=== PATIENT | male | born 1935 | race Hispanic/Latino ===

== ENCOUNTER 2017-08-21 02:30 | Emergency (ER) | payer MEDICARE, OTHER ==
[2017-08-21 02:46] VITALS: TEMP 97.6
[2017-08-21 02:48] VITALS: BMI 28.0
--- NOTE | 2017-08-21 03:06 | ED PDOC ---
Arrival/HPI - General Chief Complaint: Shortness Of Breath Time Seen by Provider: 08/21/17 02:35 Historian: Patient - History of Present Illness Narrative History of Present Illness (Text): 08/21/17 03:07 An 82 year old male, whose past medical history includes CHF, prior hx V-tach s/ p defibrillator, presents to the emergency department complaining of acute, chronic shortness of breath. Reports for the past 5 or 6 hrs, breathing has become slightly more labored, especially noticed when laying in bed. Notes shortness of breath for the past couple of weeks, worsening tonight. Patient denies any chest pain, recent fevers, cough, chills, weight gain, worsening swelling of legs. Denies any deviation from his heart medication. Patient's reports patient has low blood pressure at baseline, blood pressure was 100/ 60 earlier today. Symptom Onset: Sudden Symptom Course: Unchanged Activities at Onset: Rest Context: Home Past Medical History - Provider Review Nursing Documentation Reviewed: Yes - Infectious Disease Hx of Infectious Diseases: None - Tetanus Immunization Tetanus Immunization: Unknown - Cardiac Hx Angina: Yes Hx Congestive Heart Failure: Yes Hx Hypertension: Yes Hx Internal Defibrillator: Yes (st matteo 10 yrs) Hx Pacemaker: Yes (st matteo) Other/Comment: pacemaker/defibrillator implanted 08/2009 and replaced 08/2015, ablation - Pulmonary Hx Respiratory Disorders: No - Neurological Hx Neurological Disorder: No - HEENT Hx HEENT Disorder: Yes (uses reading glasses) Other/Comment: left eye tear duct closed left eye tears started 6 months ago - Renal Hx Renal Disorder: No - Endocrine/Metabolic Hx Endocrine Disorders: Yes Hx Hypothyroidism: Yes - Hematological/Oncological Hx Blood Disorders: No - Integumentary Hx Dermatological Disorder: No - Musculoskeletal/Rheumatological Hx Falls: No - Gastrointestinal Hx Gastrointestinal Disorders: No - Genitourinary/Gynecological Hx Genitourinary Disorders: Yes Hx Prostate Problems: Yes (enlarged) - Psychiatric Hx Psychophysiologic Disorder: No Hx Emotional Abuse: No Hx Physical Abuse: No Hx Substance Use: No - Surgical History Hx Cardiac Catheterization: Yes Hx Coronary Stent: Yes (x4) Other/Comment: Herniorraphy approx. 5 years ago left inguinal , ablation 02/26/15 - Anesthesia Hx Anesthesia Reactions: No Hx Malignant Hyperthermia: No - Suicidal Assessment Feels Threatened In Home Enviroment: No Family/Social History - Physician Review Nursing Documentation Reviewed: Yes Family/Social History: No Known Family HX Smoking Status: Former Smoker Hx Alcohol Use: Yes Frequency of alcohol use: Socially Hx Substance Use: No Hx Substance Use Treatment: No Allergies/Home Meds Allergies/Adverse Reactions: Allergies No Known Allergies Allergy (Verified 08/21/17 02:55) Home Medications: Home Meds Medication Instructions Recorded Confirmed Allopurinol 300 mg PO DAILY 02/07/15 08/21/17 Atorvastatin Calcium [Lipitor] 20 mg PO DAILY 02/07/15 08/21/17 Aspirin [Aspirin Chewable] 81 mg PO DAILY 02/25/15 08/21/17 Clopidogrel [Plavix] 75 mg PO DAILY 02/25/15 08/21/17 Isosorbide Mononitrate ER [Imdur 30 mg PO DAILY 05/12/15 08/21/17 ER] Potassium Chloride [K-Dur 20] 20 meq PO DAILY 12/08/15 08/21/17 Dutasteride [Avodart] 0.5 mg PO DAILY 02/02/16 08/21/17 Furosemide [Lasix] 20 mg PO BID 02/02/16 08/21/17 Lisinopril [Zestril] 2.5 mg PO DAILY 08/21/17 08/21/17 Nitroglycerin [Nitrotab] 0.4 mg SL PRN PRN 08/21/17 08/21/17 Vitamind3 1,000 iu PO DAILY 08/21/17 08/21/17 Review of Systems - Physician Review All systems were reviewed & negative as marked: Yes - Review of Systems Constitutional: absent: Fevers, Other (chills) Respiratory: SOB. absent: Cough Cardiovascular: absent: Chest Pain Physical Exam Vital Signs Reviewed: Yes Vital Signs Temp Pulse Resp BP Pulse Ox 08/21/17 05:11 74 16 127/80 95 08/21/17 04:58 127/63 08/21/17 02:49 18 98 08/21/17 02:44 97.6 F 70 18 117/80 98 Temperature: Afebrile Blood Pressure: Normal Pulse: Regular Respiratory Rate: Normal Appearance: Positive for: Well-Appearing, Non-Toxic, Comfortable Pain Distress: None Mental Status: Positive for: Alert and Oriented X 3 - Systems Exam Head: Present: Atraumatic, Normocephalic Pupils: Present: PERRL Extroacular Muscles: Present: EOMI Conjunctiva: Present: Normal Mouth: Present: Moist Mucous Membranes Neck: Present: Normal Range of Motion, JVD (at 45 degrees of elevation) Respiratory/Chest: Present: Other (bibasilar crackles). No: Accessory Muscle Use Cardiovascular: Present: Regular Rate and Rhythm (not accelerating), Normal S1, S2, Other (defibrillator and pacemaker). No: Murmurs Abdomen: Present: Normal Bowel Sounds. No: Tenderness, Distention, Peritoneal Signs Back: Present: Normal Inspection Upper Extremity: Present: Normal Inspection, Other (pulses 2+ peripherally). No : Cyanosis, Edema Lower Extremity: Present: Edema (trace b/l pitting edema) Neurological: Present: GCS=15, CN II-XII Intact, Speech Normal Skin: Present: Warm, Dry, Normal Color. No: Rashes Psychiatric: Present: Alert, Oriented x 3, Normal Insight, Normal Concentration Medical Decision Making ED Course and Treatment: 08/21/17 03:03 Impression: An 82 year old male with shortness of breath. Plan: -- EKG -- chest xray -- labs -- Reassess and disposition Prior Visits: Notes and results from previous visits were reviewed. Patient was last seen in the emergency department on 02/02/16 for evaluation of shortness of breath. Progress Notes: EKG: Ordered, reviewed, and independently interpreted the EKG. Rate : 76 BPM Rhythm : pace rhythm Interpretation : left bundle 100% captured, occasional VPCs unifocal, no acute ST/T wave changes Comparison : No previous EKG for comparison. 08/21/17 04:03 Chest xray: Cardiomegaly. Pacemaker noted. No active pulmonary disease, interpreted by me. 08/21/17 04:47 Labs reviewed, reveals elevated BNP 77, 90, consistent with CHF. Patient is mildly symptomatic. Will give patient IV dose of 60 mg Lasix and discharge for follow up with PMD. - Lab Interpretations Lab Results: 08/21/17 03:15 08/21/17 03:15 Lab Results 08/21/17 03:15: Sodium 139, Potassium 4.1, Chloride 106, Carbon Dioxide 25, Anion Gap 12, BUN 38 H, Creatinine 1.5, Est GFR ( Amer) 54, Est GFR (Non- Af Amer) 45, Random Glucose 111 H, Calcium 9.5, Total Bilirubin 1.1, AST 42, ALT 40, Alkaline Phosphatase 166 H, Troponin I < 0.01, NT-Pro-B Natriuret Pep 7790 H, Total Protein 7.0, Albumin 4.1, Globulin 2.8, Albumin/Globulin Ratio 1.5 08/21/17 03:15: WBC 7.3, RBC 4.44, Hgb 13.1 L, Hct 40.7 L, MCV 91.7, MCH 29.5, MCHC 32.2, RDW 15.6 H, Plt Count 203, MPV 9.8, Gran % 73.1 H, Lymph % (Auto) 15.0 L, Cottle % (Auto) 9.4 H, Eos % (Auto) 2.2, Baso % (Auto) 0.3, Gran # 5.37, Lymph # 1.1 L, Cottle # 0.7 H, Eos # 0.2, Baso # 0.02 I have reviewed the lab results: Yes - RAD Interpretation Radiology Orders: 08/21/17 02:49 CHEST PORTABLE [RAD] Stat - EKG Interpretation Interpreted by ED Physician: Yes Type: 12 lead EKG - Medication Orders Current Medication Orders: Discontinued Medications Furosemide (Lasix) 60 mg IVP STAT STA Stop: 08/21/17 04:38 Last Admin: 08/21/17 04:58 Dose: 60 mg MAR Blood Pressure Document 08/21/17 04:58 AD (Rec: 08/21/17 04:58 AD [id number]) Blood Pressure Blood Pressure (100/60-150/90) 127/63 IVP Administration Document 08/21/17 04:58 AD (Rec: 08/21/17 04:58 AD [id number]) Charges for Administration # of IVP Administrations 1 - Scribe Statement The provider has reviewed the documentation as recorded by the Prince Burgess Provider Scribe Attestation: All medical record entries made by the Scribe were at my direction and personally dictated by me. I have reviewed the chart and agree that the record accurately reflects my personal performance of the history, physical exam, medical decision making, and the department course for this patient. I have also personally directed, reviewed, and agree with the discharge instructions and disposition. Disposition/Present on Arrival - Present on Arrival Any Indicators Present on Arrival: No History of DVT/PE: No History of Uncontrolled Diabetes: No Urinary Catheter: No History of Decub. Ulcer: No History Surgical Site Infection Following: None - Disposition Have Diagnosis and Disposition been Completed?: Yes Diagnosis: CHF (congestive heart failure) Disposition: HOME/ ROUTINE Disposition Time: 04:50 Patient Plan: Discharge Condition: FAIR Discharge Instructions (ExitCare): Heart Failure (ED) Referrals: Kelton Haynes MD [Primary Care Provider] - Follow up with primary Forms: [employer] (Algerian)
[2017-08-21 03:31] LABS: BASO # 0.02 K/mm3 (0.0-2.0); BASO % 0.3 % (0.0-3.0); EOS # 0.2 (0.0-0.7); EOS % 2.2 % (1.5-5.0); GRAN # 5.37 (1.4-6.5); GRAN % 73.1 % (50.0-68.0); HEMATOCRIT 40.7 % (42.0-52.0); LYMPH # 1.1 (1.2-3.4); MEAN CELL VOLUME 91.7 fl (80.0-105.0); MEAN CORPUSCULAR HEMOGLOBIN 29.5 pg (25.0-35.0); MEAN CORPUSCULAR HGB CONC 32.2 g/dl (31.0-37.0); MEAN PLATELET VOLUME 9.8 fl (7.0-11.0); MONO # 0.7 (0.1-0.6); MONO % 9.4 % (1.0-6.0); RED CELL DISTRIBUTION WIDTH 15.6 % (11.5-14.5); WHITE BLOOD COUNT 7.3 10^3/ul (4.5-11.0)
[2017-08-21 03:42] LABS: ALB/GLOB RATIO 1.5 (1.1-1.8); ALKALINE PHOSPHATASE 166 U/L (38-126); ALT/SGPT 40 U/L (7-56); AST/SGOT 42 U/L (17-59); BILIRUBIN,TOTAL 1.1 mg/dL (0.2-1.3); BLOOD UREA NITROGEN 38 mg/dL (7-21); CALCIUM 9.5 mg/dL (8.4-10.5); CARBON DIOXIDE 25 mmol/L (21-33); CHLORIDE 106 mmol/L (98-107); GFR AFRICAN-AMERICAN 54; GLUCOSE,RANDOM 111 mg/dL (70-110); POTASSIUM 4.1 mmol/L (3.6-5.0); SODIUM 139 mmol/L (132-148)
[2017-08-21 04:12] LABS: TROPONIN I < 0.01 ng/mL
[2017-08-21 05:12] VITALS: BP 127/80; PULSE 74; RESP 16; O2SAT 95
--- NOTE | 2017-08-21 08:59 | RAD ---
HISTORY: SOB COMPARISON: 02/02/2016 FINDINGS: LUNGS: No active pulmonary disease. PLEURA: No significant pleural effusion identified, no pneumothorax apparent. CARDIOVASCULAR: Mild cardiomegaly. AICD. No congestive change. OSSEOUS STRUCTURES: No significant abnormalities. VISUALIZED UPPER ABDOMEN: Normal. OTHER FINDINGS: None. IMPRESSION: No active disease.
--- NOTE | 2017-08-21 22:21 | CARD ---
APPROVED REPORT EKG Measurement Heart [id number] <Conclusion> Demand pacemaker, interpretation is based on intrinsic rhythm Atrial fibrillation Left axis deviation Right bundle branch block T wave abnormality, consider lateral ischemia or digitalis effect Abnormal ECG
== END 2017-08-21 05:20 | disposition home or self-care (01) ==
LOC: ED 02:30
DX: I50.9 Heart failure, unspecified (principal); I10 Essential (primary) hypertension; E03.9 Hypothyroidism, unspecified; Z95.0 Presence of cardiac pacemaker; Z87.891 Personal history of nicotine dependence
CPT/HCPCS: 71010; 80053; 83880; 84484; 85025; 93005; 96374; 99283; J1940

== ENCOUNTER 2017-11-07 06:03 | Inpatient (IN) | payer MEDICARE, OTHER ==
[2017-11-07 06:04] VITALS: BMI 28.0
--- NOTE | 2017-11-07 06:30 | ED PDOC ---
Arrival/HPI - General Chief Complaint: Shortness Of Breath Time Seen by Provider: 11/07/17 06:14 - History of Present Illness Narrative History of Present Illness (Text): 11/07/17 06:28 patient presents complaini for several nights can't sleep A flat complaining of tightness in his chest no fever no chills no dizziness Past Medical History - Provider Review Nursing Documentation Reviewed: Yes - Infectious Disease Hx of Infectious Diseases: None - Tetanus Immunization Tetanus Immunization: Unknown - Cardiac Hx Angina: Yes Hx Congestive Heart Failure: Yes Hx Hypertension: Yes Hx Internal Defibrillator: Yes (st matteo 10 yrs) Hx Pacemaker: Yes (st matteo) Other/Comment: pacemaker/defibrillator implanted 08/2009 and replaced 08/2015, ablation - Pulmonary Hx Respiratory Disorders: No - Neurological Hx Neurological Disorder: No - HEENT Hx HEENT Disorder: Yes (uses reading glasses) Other/Comment: left eye tear duct closed left eye tears started 6 months ago - Renal Hx Renal Disorder: No - Endocrine/Metabolic Hx Endocrine Disorders: Yes Hx Hypothyroidism: Yes - Hematological/Oncological Hx Blood Disorders: No - Integumentary Hx Dermatological Disorder: No Hx Basal Cell Carcinoma: Yes (chest) - Musculoskeletal/Rheumatological Hx Musculoskeletal Disorders: No Hx Falls: No - Gastrointestinal Hx Gastrointestinal Disorders: No - Genitourinary/Gynecological Hx Genitourinary Disorders: Yes Hx Prostate Problems: Yes (enlarged) - Psychiatric Hx Psychophysiologic Disorder: No Hx Emotional Abuse: No Hx Physical Abuse: No Hx Substance Use: No - Surgical History Hx Cardiac Catheterization: Yes Hx Coronary Stent: Yes (x4) Other/Comment: Herniorraphy approx. 5 years ago left inguinal , ablation skin ca chest - Anesthesia Hx Anesthesia Reactions: No Hx Malignant Hyperthermia: No - Suicidal Assessment Feels Threatened In Home Enviroment: No Family/Social History - Physician Review Nursing Documentation Reviewed: Yes Family/Social History: No Known Family HX Smoking Status: Former Smoker Hx Alcohol Use: Yes Frequency of alcohol use: Socially Hx Substance Use: No Hx Substance Use Treatment: No Allergies/Home Meds Allergies/Adverse Reactions: Allergies amiodarone Allergy (Verified 11/07/17 06:12) ANAPHYLAXIS elevated lft's Home Medications: Home Meds Medication Instructions Recorded Confirmed Allopurinol 300 mg PO DAILY 02/07/15 11/07/17 Atorvastatin Calcium [Lipitor] 20 mg PO DAILY 02/07/15 11/07/17 Aspirin [Aspirin Chewable] 81 mg PO DAILY 02/25/15 11/07/17 Isosorbide Mononitrate ER [Imdur 30 mg PO QAM 05/12/15 11/07/17 ER] Potassium Chloride [K-Dur 20 mEq 20 meq PO DAILY 12/08/15 11/07/17 ER Tab] Dutasteride [Avodart] 0.5 mg PO DAILY 02/02/16 11/07/17 Furosemide [Lasix] 20 mg PO BID 02/02/16 11/07/17 Nitroglycerin [Nitrostat SL Tab] 0.4 mg SL PRN PRN 08/21/17 11/07/17 Vitamind3 1,000 iu PO DAILY 08/21/17 11/07/17 Review of Systems - Physician Review All systems were reviewed & negative as marked: Yes - Review of Systems Constitutional: Normal Eyes: Normal ENT: Normal Respiratory: SOB Cardiovascular: Chest Pain Gastrointestinal: Normal Genitourinary Male: Normal Musculoskeletal: Normal Skin: Normal Neurological: Normal Endocrine: Normal Hemo/Lymphatic: Normal Psychiatric: Normal Physical Exam Vital Signs Reviewed: Yes Vital Signs Temp Pulse Resp BP Pulse Ox 11/07/17 10:11 73 11/07/17 10:00 70 18 115/80 96 11/07/17 08:17 119/80 11/07/17 08:04 98.1 F 70 20 119/74 96 11/07/17 08:01 70 17 119/74 96 11/07/17 06:44 72 18 116/91 H 96 11/07/17 06:42 18 11/07/17 06:23 97.7 F 70 20 118/61 98 Temperature: Afebrile Blood Pressure: Normal Pulse: Regular Respiratory Rate: Normal Appearance: Positive for: Well-Appearing, Non-Toxic, Comfortable Pain Distress: None Mental Status: Positive for: Alert and Oriented X 3 - Systems Exam Head: Present: Atraumatic, Normocephalic Pupils: Present: PERRL Extroacular Muscles: Present: EOMI Conjunctiva: Present: Normal Mouth: Present: Moist Mucous Membranes Neck: Present: Normal Range of Motion Respiratory/Chest: Present: Clear to Auscultation, Good Air Exchange. No: Respiratory Distress, Accessory Muscle Use Cardiovascular: Present: Regular Rate and Rhythm, Normal S1, S2. No: Murmurs Abdomen: Present: Normal Bowel Sounds. No: Tenderness, Distention, Peritoneal Signs Back: Present: Normal Inspection Upper Extremity: Present: Normal Inspection. No: Cyanosis, Edema Lower Extremity: Present: Normal Inspection. No: Edema Neurological: Present: GCS=15, CN II-XII Intact, Speech Normal Skin: Present: Warm, Dry, Normal Color. No: Rashes Psychiatric: Present: Alert, Oriented x 3, Normal Insight, Normal Concentration Medical Decision Making ED Course and Treatment: 11/07/17 06:35 EKG 100% paced rhythm rate of 70 - Lab Interpretations Microbiology Results: Microbiology Results 11/07/17 07:00 Blood-Venous Blood Culture - Preliminary NO GROWTH AFTER 48 HOURS 11/07/17 06:31 Blood-Venous Blood Culture - Preliminary NO GROWTH AFTER 48 HOURS Lab Results: 11/07/17 06:31 11/07/17 06:31 Lab Results 11/07/17 07:35: POC Glucose (mg/dL) 105 11/07/17 06:31: Influenza Typ A,B (EIA) Negative for flu a/b 11/07/17 06:31: Sodium 140, Chloride 104, Potassium 4.6, Carbon Dioxide 26, Anion Gap 15, BUN 41 H, Creatinine 2.1 H, Est GFR ( Amer) 37, Est GFR ( Non-Af Amer) 30, Random Glucose 111 H, Calcium 10.3, Total Bilirubin 1.3, AST 29 , ALT 41, Alkaline Phosphatase 155 H, Lactate Dehydrogenase 479, Total Creatine Kinase 57, Troponin I < 0.01, NT-Pro-B Natriuret Pep 8620 H, Total Protein 7.4, Albumin 4.3, Globulin 3.1, Albumin/Globulin Ratio 1.4 11/07/17 06:31: pO2 30, VBG pH 7.28 L, VBG pCO2 56.0, VBG HCO3 26.3, VBG Total CO2 28.0, VBG O2 Sat (Calc) 63.9, VBG Base Excess -1.4 L, VBG Potassium 4.7, Sodium 138.0, Chloride 104.0, Glucose 111 H, Lactate 1.2, FiO2 21.0, Venous Blood Potassium 4.7 11/07/17 06:31: WBC 8.1, RBC 4.88, Hgb 14.4, Hct 45.4, MCV 93.0, MCH 29.5, MCHC 31.7, RDW 16.2 H, Plt Count 208, MPV 9.8, Gran % 75.4 H, Lymph % (Auto) 15.2 L, Gem % (Auto) 7.7 H, Eos % (Auto) 1.6, Baso % (Auto) 0.1, Gran # 6.10, Lymph # ( Auto) 1.2, Gem # (Auto) 0.6, Eos # (Auto) 0.1, Baso # (Auto) 0.01 - RAD Interpretation Radiology Orders: 11/07/17 06:14 CHEST PORTABLE [RAD] Stat - Medication Orders Current Medication Orders: Discontinued Medications Acetaminophen (Tylenol 325mg Tab) 650 mg PO Q4H PRN PRN Reason: Fever >100.5 F Albuterol/Ipratropium (Duoneb 3 Mg/0.5 Mg (3 Ml) Ud) 3 ml IH Q4H PRN PRN Reason: Shortness of Breath Allopurinol (Zyloprim) 300 mg PO DAILY [facility] Last Admin: 11/08/17 11:29 Dose: 300 mg Apixaban (Eliquis) 2.5 mg PO BID MERE PRN Reason: Protocol Last Admin: 11/08/17 11:29 Dose: 2.5 mg Aspirin (Aspirin Chewable) 81 mg PO DAILY [facility] Last Admin: 11/08/17 11:29 Dose: 81 mg Atorvastatin Calcium (Lipitor) 20 mg PO DAILY [facility] Last Admin: 11/08/17 11:28 Dose: 20 mg Furosemide (Lasix) 20 mg IVP STAT STA Stop: 11/07/17 08:13 Last Admin: 11/07/17 08:17 Dose: 20 mg MAR Blood Pressure Document 11/07/17 08:17 GUILHERME (Rec: 11/07/17 08:17 KACIE RAMIREZ-PC) Blood Pressure Blood Pressure (100/60-150/90) 119/80 IVP Administration Document 11/07/17 08:17 KACIE (Rec: 11/07/17 08:17 KACIE [email or web address]-PC) Charges for Administration # of IVP Administrations 1 Furosemide (Lasix) 20 mg IVP Q12 [facility] Last Admin: 11/08/17 11:31 Dose: 20 mg MAR Blood Pressure Document 11/08/17 11:31 [facility] (Rec: 11/08/17 11:31 [facility] [id number]) Blood Pressure Blood Pressure (100/60-150/90) 120/80 IVP Administration Document 11/08/17 11:31 [facility] (Rec: 11/08/17 11:31 [facility] [id number]) Charges for Administration # of IVP Administrations 1 Insulin Human Regular (Humulin R Low) 0 units SC ACHS [facility] PRN Reason: Protocol Last Admin: 11/08/17 08:00 Dose: Not Given Non-Admin Reason: Blood Sugar Parameter MAR Blood Glucose Document 11/08/17 08:00 [facility] (Rec: 11/08/17 09:20 [facility] [id number]) Blood Glucose Finger Stick Blood Glucose (70-120) 91 Ipratropium [place] (Atrovent) 0.5 mg STAT STA Stop: 11/07/17 07:58 Last Admin: 11/07/17 08:08 Dose: 0.5 mg Isosorbide Mononitrate (Imdur Er) 30 mg PO QAM [facility] Last Admin: 11/08/17 11:29 Dose: 30 mg Levothyroxine Sodium (Synthroid) 25 mcg PO DAILY [facility] Last Admin: 11/08/17 11:29 Dose: 25 mcg Metoprolol Succinate (Toprol Xl) 25 mg PO DAILY [facility] Last Admin: 11/08/17 11:29 Dose: 25 mg [place]ANNER Pulse and Blood Pressure Document 11/08/17 11:29 [facility] (Rec: 11/08/17 11:30 [facility] [id number]) Pulse Pulse Rate (60-90) 88 Blood Pressure Blood Pressure (100/60-150/90) 120/70 Nitroglycerin (Nitrostat Sl Tab) 0.4 mg SL Q5M PRN PRN Reason: Heart rate Dutasteride [Avodart ] 0.5 Mg (Home Med ) 0.5 mg PO DAILY [facility] Last Admin: 11/08/17 13:29 Dose: Pantoprazole Sodium (Protonix Ec Tab) 40 mg PO DAILY [facility] Last Admin: 11/08/17 11:30 Dose: 40 mg Potassium Chloride (K-Dur 20 Meq Er Tab) 20 meq PO DAILY [facility] Last Admin: 11/08/17 11:28 Dose: 20 meq Potassium Chloride (K-Dur 20 Meq Er Tab) 20 meq PO BRK [facility] Last Admin: 11/08/17 08:31 Dose: 20 meq - Transfer of Care Patient signed out to Dr:: belle labs and dispo Disposition/Present on Arrival - Present on Arrival Any Indicators Present on Arrival: No History of DVT/PE: No History of Uncontrolled Diabetes: No Urinary Catheter: No History of Decub. Ulcer: No History Surgical Site Infection Following: None - Disposition Have Diagnosis and Disposition been Completed?: Yes Diagnosis: CHF (congestive heart failure) Disposition: HOSPITALIZED Disposition Time: 07:00 Condition: GOOD
[2017-11-07 06:50] LABS: VENOUS BLOOD GAS BASE EXCESS -1.4 mmol/L (0.0-2.0); VENOUS BLOOD GAS PO2 30 mm/Hg (30-55); VENOUS BLOOD PH 7.28 (7.32-7.43)
[2017-11-07 07:09] LABS: BASO # 0.01 K/mm3 (0.0-2.0); BASO % 0.1 % (0.0-3.0); EOS # 0.1 (0.0-0.7); EOS % 1.6 % (1.5-5.0); GRAN # 6.1 (1.4-6.5); GRAN % 75.4 % (50.0-68.0); HEMOGLOBIN 14.4 g/dL (14.0-18.0); LYMPH # 1.2 (1.2-3.4); LYMPH % 15.2 % (22.0-35.0); MEAN CORPUSCULAR HEMOGLOBIN 29.5 pg (25.0-35.0); MEAN CORPUSCULAR HGB CONC 31.7 g/dl (31.0-37.0); MEAN PLATELET VOLUME 9.8 fl (7.0-11.0); MONO # 0.6 (0.1-0.6); MONO % 7.7 % (1.0-6.0); RBC 4.88 10^6/uL (3.5-6.1); RED CELL DISTRIBUTION WIDTH 16.2 % (11.5-14.5); WHITE BLOOD COUNT 8.1 10^3/ul (4.5-11.0)
[2017-11-07] MEDS ORDERED: Albuterol-Ipratrop 3 mg / 0.5 (3 ml) UD IH PRN (07:12)
[2017-11-07 07:17] LABS: ALB/GLOB RATIO 1.4 (1.1-1.8); ALBUMIN 4.3 g/dL (3.0-4.8); ALT/SGPT 41 U/L (7-56); AST/SGOT 29 U/L (17-59); BLOOD UREA NITROGEN 41 mg/dL (7-21); CALCIUM 10.3 mg/dL (8.4-10.5); GFR AFRICAN-AMERICAN 37; GFR NON-AFRICAN AMERICAN 30
[2017-11-07 07:22] LABS: B-TYPE NATRIURETIC PEPTIDE 8620 pg/mL (0-450); TROPONIN I < 0.01 ng/mL
[2017-11-07] MEDS ORDERED: Ipratropium 0.02% Inhal Soln (0.5 mg/2.5 ml) UD IH STA (07:57)
[2017-11-07] MEDS: Insulin Reg-LOW-Coverage SC SCH ×2 (08:03→17:11)
[2017-11-07] MEDS: Metoprolol Succinate 25 mg XL Tab PO SCH (10:11)
[2017-11-07] MEDS: Potassium Chloride 20 mEq ER Tab PO SCH (10:11)
[2017-11-07] MEDS: Levothyroxine 25 MCG TAB PO SCH (10:13)
--- NOTE | 2017-11-07 10:33 | RAD ---
HISTORY: cp COMPARISON: 08/21/2017 FINDINGS: LUNGS: No active pulmonary disease. PLEURA: No significant pleural effusion identified, no pneumothorax apparent. CARDIOVASCULAR: Moderate cardiomegaly. Mild vascular congestion OSSEOUS STRUCTURES: No significant abnormalities. VISUALIZED UPPER ABDOMEN: Normal. OTHER FINDINGS: Dual lead pacemaker IMPRESSION: Moderate cardiomegaly. Mild vascular congestion
--- NOTE | 2017-11-07 11:20 | CP.PCM.HP ---
<Lisa Bangura - Last Filed: 11/07/17 11:16> History of Present Illness - History of Present Illness History of Present Illness: PGY-2 H&P for hospitalist service 82 yo male with PMH of a. fib, BPH, CHF (EF 25%), defibrillator, pacemaker, CAD , basal cell carcinoma presents with increasing SOB, orthopnea. Patient states that he has been having sob intermittently for the past few months. He states that it is worse when he lays down and in the evenings. He states that he sleeps with 2 pillow. Patient states that he was in the hospital about 3 months ago for similar symptoms, at the time he was given lasix which improved his breathing. He states that he does not have dyspnea on exertion. He denies any other complaints including fever, chills, chest pain, abd pain, cough. He states that he recently had a skin lesion removed from his chest. PMH:a. fib, BPH, CHF (EF 25%), defibrillator, pacemaker, CAD, basal cell carcinoma PSH: cardiac stentsx 4, herniorraphy allergy: amiodarone social hx: former smoker quit about 4 yo, smoked about 5 cigars/ day, drinks 4oz of wine daily, denies illicit drug use family hx: denies home meds: reviewed PMD: [facility] home health lpn; Josue Present on Admission - Present on Admission Any Indicators Present on Admission: No Review of Systems - Constitutional Constitutional: absent: Chills, Fatigue, Fever, Headache, Lethargy, Weight Gain , Weight Loss - EENT Eyes: absent: Blurred Vision, Change in Vision Nose/Mouth/Throat: Nasal Congestion. absent: Nasal Discharge, Sore Throat - Cardiovascular Cardiovascular: Dyspnea, Orthopnea. absent: Chest Pain, Chest Pain at Rest, Diaphoresis - Respiratory Respiratory: Dyspnea. absent: Cough, Hemoptysis, Dyspnea on Exertion, Wheezing - Gastrointestinal Gastrointestinal: absent: Abdominal Pain, Constipation, Diarrhea, Nausea, Vomiting - Genitourinary Genitourinary: absent: Change in Urinary Stream, Difficulty Urinating, Dysuria, Hematuria - Musculoskeletal Musculoskeletal: absent: Arthralgias, Back Pain, Myalgias, Numbness, Tingling - Integumentary Integumentary: Other (incision from lesion removal). absent: Rash, Skin Ulcer, Swelling, Wounds - Neurological Neurological: absent: Confusion, Dizziness, Focal Weakness, Headaches, Syncope, Tingling - Hematologic/Lymphatic Hematologic: absent: Easy Bleeding, Easy Bruising Past Patient History - Infectious Disease Hx of Infectious Diseases: None - Tetanus Immunizations Tetanus Immunization: Unknown - Past Social History Smoking Status: Former Smoker - CARDIAC Hx Angina: Yes Hx Congestive Heart Failure: Yes Hx Hypertension: Yes Hx Internal Defibrillator: Yes (st matteo 10 yrs) Hx Pacemaker: Yes (st matteo) Other/Comment: pacemaker/defibrillator implanted 08/2009 and replaced 08/2015, ablation - PULMONARY Hx Respiratory Disorders: No - NEUROLOGICAL Hx Neurological Disorder: No - HEENT Hx HEENT Problems: Yes (uses reading glasses) Other/Comment: left eye tear duct closed left eye tears started 6 months ago - RENAL Hx Chronic Kidney Disease: No - ENDOCRINE/METABOLIC Hx Endocrine Disorders: Yes Hx Hypothyroidism: Yes - HEMATOLOGICAL/ONCOLOGICAL Hx Blood Disorders: No - INTEGUMENTARY Hx Dermatological Problems: No Hx Basil Cell: Yes (chest) - MUSCULOSKELETAL/RHEUMATOLOGICAL Hx Musculoskeletal Disorders: No Hx Falls: No - GASTROINTESTINAL Hx Gastrointestinal Disorders: No - GENITOURINARY/GYNECOLOGICAL Hx Genitourinary Disorders: Yes Hx Prostate Problems: Yes (enlarged) - PSYCHIATRIC Hx Psychophysiologic Disorder: No Hx Emotional Abuse: No Hx Physical Abuse: No Hx Substance Use: No - SURGICAL HISTORY Hx Cardiac Catheterization: Yes Hx Coronary Stent: Yes (x4) Other/Comment: Herniorraphy approx. 5 years ago left inguinal , ablation skin ca chest - ANESTHESIA Hx Anesthesia Reactions: No Hx Malignant Hyperthermia: No Meds Allergies/Adverse Reactions: Allergies Allergy/AdvReac Type Severity Reaction Status Date / Time amiodarone Allergy ANAPHYLAXIS Verified 11/07/17 06:12 Physical Exam - Constitutional Appears: Well, No Acute Distress - Head Exam Head Exam: ATRAUMATIC, NORMAL INSPECTION, NORMOCEPHALIC - Eye Exam Eye Exam: EOMI, Normal appearance - ENT Exam ENT Exam: Mucous Membranes Moist - Respiratory Exam Respiratory Exam: Rhonchi (mild), NORMAL BREATHING PATTERN. absent: Wheezes, Respiratory Distress - Cardiovascular Exam Cardiovascular Exam: REGULAR RHYTHM, +S1, +S2. absent: Tachycardia, Systolic Murmur - GI/Abdominal Exam GI & Abdominal Exam: Normal Bowel Sounds, Soft. absent: Distended, Firm, Guarding, Tenderness - Extremities Exam Extremities exam: Positive for: normal inspection. Negative for: pedal edema, tenderness - Back Exam Back exam: NORMAL INSPECTION. absent: paraspinal tenderness, vertebral tenderness - Neurological Exam Neurological exam: Alert, Oriented x3 - Psychiatric Exam Psychiatric exam: Normal Affect, Normal Mood - Skin Skin Exam: Dry, Normal Color, Warm Additional comments: incision from lesion removal, no erythema, sutures intact Results - Vital Signs Recent Vital Signs: Last Vital Signs Temp 98.1 F 11/07/17 08:04 Pulse 73 11/07/17 10:11 Resp 18 11/07/17 10:00 BP 115/80 11/07/17 10:00 Pulse Ox 96 11/07/17 10:00 - Labs Result Diagrams: 11/07/17 06:31 11/07/17 06:31 Assessment & Plan - Assessment and Plan (Free Text) Assessment: 82 yo male with PMH of a. fib, BPH, CHF (EF 25%), defibulator, pacemaker, CAD, basal cell carcinoma presents with increasing SOB, orthopnea found to have ALICJA Plan: sob. orthopnea - most like due to chf exacerbation - cxr showed mild vascular congestion - elevated pBNP - in ED he received 20mg lasix iv and atrovent - will start lasix 20mg iv q12 - previous cath in 2014 showed EF of 25% - cardiology consult, Dr. Salas - strict I&O an d daily weights ALICJA - creatinine is 2.1, baseline is around 1.8 for previous admission - hold lisinopril, (acei and arbs) - urine urea, Na, cr and microalbumin, protein - will calculate FeNa and Feurea - renal US and bladder ultrasound to rule out post renal obstruction - nephro consulted a. fib - rate controlled - continue toprol - continue eliquis CAD - continue asa 81mg, Lipitor 20mg, imdur 30mg, toprol 25mg hypothyriodism - contineu synthriod 25mcg DVT ppx- eliquis GI ppx- protonix <Rochelle Castaneda A - Last Filed: 11/07/17 14:53> Results - Vital Signs Recent Vital Signs: Last Vital Signs Temp 98.5 F 11/07/17 12:00 Pulse 67 11/07/17 12:00 Resp 18 01/31/18 12:00 BP 113/74 11/07/17 12:00 Pulse Ox 96 11/07/17 12:00 - Labs Result Diagrams: 11/07/17 06:31 11/07/17 06:31 Attending/Attestation - Attestation I have personally seen and examined this patient.: Yes I have fully participated in the care of the patient.: Yes I have reviewed all pertinent clinical information: Yes Notes (Text): 11/07/17 14:51 82 year old male with past medical history of CHF s/p defibrillator/pacemaker, AFib on eliqius, BPH and CKD who presents with CHF exacerbation. Continue with iv lasix for diuresis. Strict Is and Os and daily weights. Cardiology evaluation was requested. Continue with home medications aspirin, eliquis, lipitor, imdur and toprol. He also has acute on chronic kidney disease. Will monitor and hold his lisinopril. Nephrology evaluation is requested. Rochelle Castaneda MD Hospitalist.
--- NOTE | 2017-11-07 11:56 | US ---
PROCEDURE: Ultrasound of the Kidneys HISTORY: Chronic renal insufficiency COMPARISON: None available. TECHNIQUE: Grayscale imaging was performed. FINDINGS: RIGHT KIDNEY: Measures: 9.7 cm. Normal in size with diffuse increased cortical echogenicity and mild cortical thinning. There is a 1.5 x 1.2 x 1.4 cm simple cyst in the interpolar region and 4.4 x 3.9 x 3.8 cm simple cyst in the lower pole. No stone, solid mass lesion or hydronephrosis visualized. LEFT KIDNEY: Measures: 11.8 cm. Normal in size with diffuse increased cortical echogenicity and mild cortical thinning. There is a 1.8 x 1.7 x 1.9 cm simple cyst in the interpolar region and 0.9 cm simple cyst in the lower pole. No stone, solid mass lesion or hydronephrosis visualized. OTHER FINDINGS: None. IMPRESSION: 1. Chronic renal parenchymal disease. 2. Simple cysts in the kidneys, the largest in the right lower pole measures 4.4 cm.
--- NOTE | 2017-11-07 12:02 | US ---
PROCEDURE: Ultrasound of the Bladder HISTORY: please check post-void residual volume COMPARISON: None available. TECHNIQUE: Sonographic evaluation of the bladder was performed. FINDINGS: The urinary did bladder is partially distended and grossly normal in appearance without wall thickening or intraluminal debris. No calculus or gross mass lesion. No free fluid in pelvis. Bilateral ureteral jets are visualized on color flow imaging. Prevoid Volume: 70 cc. Post void residual: 27 cc. The prostate gland is markedly enlarged with a volume of 135 mL. IMPRESSION: Small postvoid residual Unremarkable sonogram of the bladder. Mild enlargement of the prostate gland. Please correlate with PSA levels.
[2017-11-07] MEDS: Dutasteride [Avodart] 0.5 MG (HOME MED) PO SCH (12:15)
--- NOTE | 2017-11-07 12:58 | CARD ---
APPROVED REPORT EKG Measurement Heart [id number] VT [id number] [id number] <Conclusion> Electronic ventricular pacemaker
[2017-11-07 16:58] LABS: PH,URINE 5.5 (4.7-8.0); URINE BILIRUBIN NEGATIVE (NEGATIVE); URINE BLOOD SMALL (NEGATIVE); URINE GLUCOSE (UA) NEGATIVE (NEGATIVE); URINE LEUKOCYTE ESTERASE NEGATIVE Leu/uL (NEGATIVE); URINE NITRATE NEGATIVE (NEGATIVE); URINE PROTEIN NEGATIVE mg/dL (<30 mg/dL); URINE UROBILINOGEN 0.2 E.U./dL (<1 E.U./dL)
[2017-11-07 17:02] LABS: URINE APPEARANCE CLEAR (CLEAR); URINE COLOR YELLOW (YELLOW)
[2017-11-07 17:04] LABS: URINE BACTERIA FEW (NEG); URINE RBC 0 - 2 /hpf (0-2)
[2017-11-07 17:14] LABS: CREATININE,RANDOM URINE 83 mg/dL
[2017-11-08] MEDS: Insulin Reg-LOW-Coverage SC SCH ×2 (00:17→08:00)
--- NOTE | 2017-11-08 03:43 | CON ---
CARDIAC CONSULTATION DATE: REQUESTING PHYSICIAN: Dr. Castaneda. REASON FOR CONSULTATION: Dyspnea. HISTORY OF PRESENT ILLNESS: This is an 82-year-old man well known to us with a history of coronary artery disease status post prior myocardial infarctions and PCI as well as LV dysfunction and ventricular tachycardia who was admitted with worsening dyspnea and cough for the past several days. He claims compliance with his medications as well as sodium and fluid restriction. In the Emergency Room he was felt to be in congestive heart failure and treated with IV Lasix. He was seen on telemetry and feels significantly better. He denied any chest pain. PAST MEDICAL HISTORY: His past history is known for the problems mentioned above. He has undergone prior PT ablation and he also has a prior ICD implanted. He has a history of hyperlipidemia, gout, prior hematuria, history of paroxysmal atrial fibrillation as well as hypothyroidism. CURRENT MEDICATIONS: Include aspirin, DuoNeb inhaler, Avodart, Eliquis 2.5 mg b.i.d., insulin, Imdur 30 mg daily, potassium 20 mEq daily, Lasix 20 mg IV q.12 hours, Lipitor, Protonix, Synthroid, Toprol XL 25 mg daily and allopurinol. SOCIAL HISTORY: He does not smoke or drink. FAMILY HISTORY: Both parents are from age-related illness. REVIEW OF SYSTEMS: A 10-point review of systems is otherwise unremarkable. PHYSICAL EXAMINATION GENERAL: He is a fairly healthy-appearing elderly man. VITAL SIGNS: His blood pressure is 112/70 with pulse of 68, respirations are 16 and he is afebrile. HEENT: Normocephalic and atraumatic. NECK: Supple. No JVD noted. CHEST: Bilateral scattered rhonchi with faint rales noted at the left base. HEART: PMI displaced laterally with soft tones noted. Systolic murmurs present in the left sternal border. ABDOMEN: Soft and nontender. Normoactive bowel sounds. EXTREMITIES: No clubbing, cyanosis and edema. SKIN: Warm and dry. PSYCHIATRIC: Normal mood and affect. NEUROLOGIC: Alert and oriented x3. No gross motor sensory is appreciable. DIAGNOSTIC DATA: Chest x-ray reveals large cardiac silhouette with ICD system in place and mildly increased vascular markings. His electrocardiogram reveals a ventricular paced rhythm. His white count is 8.1, hemoglobin and hematocrit 14.4 and 45.5 with platelet count of 208,000. Potassium 4.6, BUN and creatinine 41 and 2.1 with glucose of 111. BNP is 8620. Troponin is negative. Influenza serology is negative as well. IMPRESSION: 1. Mildly decompensated congestive heart failure, [id number], predominantly systolic. 2. Known coronary disease status post remote myocardial fraction percutaneous coronary intervention clinically stable. 3. Paroxysmal atrial fibrillation. 4. History ventricular tachycardia status post implantable cardioverter-defibrillator implant. 5. Renal insufficiency. This appears worsened from prior hospital visit in August with a creatinine 1.5. RECOMMENDATIONS: At admission to telemetry is advisable. Serial enzymes will be obtained. IV Lasix will be administered. Followup blood work and morning will be planned. The rest. His oral medications will continue unchanged. A followup echocardiogram will be obtained as well. Hopefully with risks diuresis early discharge home can be planned. Thank for this consultation. Bryan Wright MD
[2017-11-08 05:54] VITALS: O2SAT 98
[2017-11-08 07:11] LABS: BASO # 0.01 K/mm3 (0.0-2.0); BASO % 0.1 % (0.0-3.0); EOS # 0.1 (0.0-0.7); GRAN # 6.14 (1.4-6.5); GRAN % 74.8 % (50.0-68.0); HEMOGLOBIN 13.1 g/dL (14.0-18.0); LYMPH # 1.1 (1.2-3.4); LYMPH % 13.4 % (22.0-35.0); MEAN CELL VOLUME 91.5 fl (80.0-105.0); MEAN CORPUSCULAR HEMOGLOBIN 28.5 pg (25.0-35.0); MEAN CORPUSCULAR HGB CONC 31.2 g/dl (31.0-37.0); MEAN PLATELET VOLUME 9.6 fl (7.0-11.0); MONO # 0.9 (0.1-0.6); MONO % 10.7 % (1.0-6.0); RBC 4.59 10^6/uL (3.5-6.1); WHITE BLOOD COUNT 8.2 10^3/ul (4.5-11.0)
[2017-11-08 08:10] LABS: ALB/GLOB RATIO 1.4 (1.1-1.8); CALCIUM 9.8 mg/dL (8.4-10.5); MAGNESIUM 2.1 mg/dL (1.7-2.2)
--- NOTE | 2017-11-08 08:30 | CP.PCM.PN ---
Subjective - Date & Time of Evaluation Date of Evaluation: 11/08/17 Time of Evaluation: 07:00 - Subjective Subjective: Stable on 3R. He feels better.No SOB. has been ambulating. V/S noted. V. Paced. PE: Lungs: clear Cor: S1S2 Abd.: soft Ext.: no edema Neuro.: alert Labs 11/08 noted. Cr. = 1.6 Echo just done. Will review. Objective - Vital Signs/Intake and Output Vital Signs (last 24 hours): Temp Pulse Resp BP Pulse Ox 98.4 F 71 20 96/59 L 98 11/08/17 05:53 11/08/17 05:53 11/08/17 05:53 11/08/17 05:53 11/08/17 05:53 Intake and Output: 11/08/17 11/08/17 06:59 18:59 Intake Total 380 Balance 380 - Medications Medications: Current Medications Acetaminophen (Tylenol 325mg Tab) 650 mg PO Q4H PRN PRN Reason: Fever >100.5 F Albuterol/Ipratropium (Duoneb 3 Mg/0.5 Mg (3 Ml) Ud) 3 ml IH Q4H PRN PRN Reason: Shortness of Breath Allopurinol (Zyloprim) 300 mg PO DAILY [facility] Last Admin: 11/07/17 12:18 Dose: 300 mg Apixaban (Eliquis) 2.5 mg PO BID [facility] PRN Reason: Protocol Last Admin: 11/07/17 17:27 Dose: 2.5 mg Aspirin (Aspirin Chewable) 81 mg PO DAILY [facility] Last Admin: 11/07/17 10:12 Dose: 81 mg Atorvastatin Calcium (Lipitor) 20 mg PO DAILY [facility] Last Admin: 11/07/17 10:12 Dose: 20 mg Furosemide (Lasix) 20 mg IVP Q12 [facility] Last Admin: 11/07/17 22:11 Dose: 20 mg Insulin Human Regular (Humulin R Low) 0 units SC ACHS [facility] PRN Reason: Protocol Last Admin: 11/08/17 00:17 Dose: Not Given Isosorbide Mononitrate (Imdur Er) 30 mg PO QAM [facility] Last Admin: 11/07/17 10:11 Dose: 30 mg Levothyroxine Sodium (Synthroid) 25 mcg PO DAILY [facility] Last Admin: 01/31/18 10:13 Dose: 25 mcg Metoprolol Succinate (Toprol Xl) 25 mg PO DAILY [facility] Last Admin: 11/07/17 10:11 Dose: 25 mg Nitroglycerin (Nitrostat Sl Tab) 0.4 mg SL Q5M PRN PRN Reason: Heart rate Dutasteride [Avodart ] 0.5 Mg (Home Med ) 0.5 mg PO DAILY [facility] Last Admin: 11/07/17 12:15 Dose: Not Given Pantoprazole Sodium (Protonix Ec Tab) 40 mg PO DAILY [facility] Potassium Chloride (K-Dur 20 Meq Er Tab) 20 meq PO DAILY [facility] Last Admin: 11/07/17 10:11 Dose: 20 meq - Labs Labs: 11/08/17 06:30 11/08/17 06:30 Assessment and Plan - Assessment and Plan (Free Text) Assessment: Dyspnea/Congested/Cough/Orthopnea CHF CAD/AL/PCI/Severe LVD PAF VT/ICD SVT ablation CKD HLD Hematuria Hypothyroidism Skin cancer, basal cell ca. Former Smoker Plan: OOB Continue IV Lasix today. Will check echo
--- NOTE | 2017-11-08 09:45 | CON ---
DATE: NEPHROLOGY CONSULTATION LOCATION: [facility]. HISTORY OF PRESENT ILLNESS: An 82-year-old male with past medical history of AFib; CHF with EF 25%; systolic dysfunction, status post defibrillator/pacemaker; CAD, status post stent; BPH, presenting today with increasing shortness of breath and orthopnea, found to be in decompensated CHF. Nephrology being consulted for acute kidney injury. Patient is seen this evening sitting comfortably in a chair; reports that over the past few days, he was having difficulty lying flat due to shortness of breath; otherwise, denies increased leg swelling; reports exercise tolerance has been fairly well with the patient undergoing physical therapy regularly; patient denies any dietary indiscretion with regard to sodium lately and has been very vigilant in this regard; patient denies any change in urination, urinates about 1 to 2 times per night, has been having good urinary stream. Denies any feeling of incomplete bladder evacuation. No dysuria. Patient, otherwise, denies any chest pain or palpitations. PAST MEDICAL HISTORY: As above. Also with basal cell carcinoma. SOCIAL HISTORY: Previous smoker. FAMILY HISTORY: None per chart. REVIEW OF SYSTEMS: CONSTITUTIONAL: Denies any weight change. Appetite has been well. No fevers or chills. HEENT: Denies any difficulty swallowing, reports nasal stuffiness for which he went the ENT recently, but no remarkable findings. RESPIRATORY: Has occasional cough without sputum production. CARDIOVASCULAR: As per HPI. GASTROINTESTINAL: No nausea, vomiting or diarrhea. GENITOURINARY: As per HPI. MUSCULOSKELETAL: Denies any back pain or arthralgias, not on any pain meds. SKIN: Denies any rashes. NEUROLOGIC: Denies any tremors. PSYCHIATRIC: Reports sleeping well other than recently due to shortness of breath. PHYSICAL EXAMINATION: VITAL SIGNS: This evening, blood pressure 114/75, heart rate 69, respirations 18, temperature 97.5, O2 sat 96% on room air. GENERAL: No distress. Conversing coherently in full sentences. HEENT: Moist mucous membranes. Nonicteric. No cervical lymphadenopathy. No elevated JVD. RESPIRATORY: Lungs clear to auscultation bilaterally. No rales or rhonchi. No wheezes. CARDIOVASCULAR: Irregular rhythm, otherwise no obvious murmurs, no gallops, no rubs. GASTROINTESTINAL: Abdomen obese, otherwise soft, nontender, nondistended. No abdominal bruits. GENITOURINARY: No obvious bladder distention. EXTREMITIES: Mild bilateral lower leg edema. 1+ dorsalis pedis pulse on right, 2+ on left. 2+ bilateral femoral pulses without any bruits. No abdominal bruits. PSYCHIATRIC: Normal mood, normal affect. NEUROLOGIC: No tremor of outstretched hands. LABORATORY DATA: This morning, CBC: WBC 8.1, hemoglobin 14.4, hematocrit 45.4, platelets 208. Chemistry panel: Sodium 140, potassium 4.6, chloride 104, bicarb 26, BUN 41, creatinine 2.1 increased from 1.5 in August. Glucose 111, calcium 10.3, T bili 1.3, AST 29, ALT 41, alk phos 155. ProBNP 8620, albumin 4.3. Urine studies: Urine microalbumin 89.9 mg/L, urine creatinine 83 mg/dL, ratio 108 mg per gram, protein 16 mg per liter. UA: Specific gravity 1.015, small blood, 1 to 3 wbc's, 0 to 2 rbc's per high-powered field. VBG: PH 7.28, pCO2 of 56. Renal ultrasound ordered by us this morning showing bilateral echogenic kidneys with multiple simple cysts. Bladder ultrasound showing no significant postvoid residual volume, although pre avoid bladder was not fully distended. ASSESSMENT AND PLAN: 1. Acute kidney injury on chronic kidney disease. Significant worsening of renal function over past 2 plus months; etiology is unclear at this point, but this may be hemodynamically mediated in the setting of known congestive heart failure; may improve with cardiac optimization; continue current diuretic therapy with intravenous Lasix 20 mg q. 12 hours. Avoid any nephrotoxic agents. 2. Acute decompensated systolic congestive heart failure. Symptoms improved with intravenous diuresis; continue current diuretic regimen of intravenous Lasix for now. 3. Benign prostatic hyperplasia, markedly enlarged prostate seen on ultrasound; no significant postvoid residual volume; patient is already on Avodart; if retention does occur at some point, can consider starting Flomax at that time. 4. Electrolyte imbalance. Patient with respiratory acidosis on VBG with inadequate metabolic compensation likely due to having significant renal insufficiency; may benefit from BiPAP at night; calcium at higher end of normal. We will check PTH and 25-hydroxy vitamin D levels. 5. Microalbuminuria. Should continue to monitor every 6 to 12 months. If proteinuria increases, may benefit from CHAPARRO inhibitor or ARB. 6. Hypertension. Blood pressure currently controlled on Imdur 30 mg daily, metoprolol XL 25 mg daily and diuretics as above. Continue the same. Thank you for this referral. We will continue to follow closely. Quinn York MD
[2017-11-08] MEDS ORDERED: Pantoprazole 40 mg EC Tab PO SCH (10:00)
[2017-11-08] MEDS ORDERED: Potassium Chloride 20 mEq ER Tab PO SCH (10:00)
[2017-11-08] MEDS: Potassium Chloride 20 mEq ER Tab PO SCH (11:28)
[2017-11-08] MEDS: Metoprolol Succinate 25 mg XL Tab PO SCH (11:29)
[2017-11-08] MEDS: Levothyroxine 25 MCG TAB PO SCH (11:29)
[2017-11-08 12:10] VITALS: PULSE 69; RESP 17; TEMP 97.2
[2017-11-08 13:29] VITALS: BP 108/66
[2017-11-08] MEDS: Dutasteride [Avodart] 0.5 MG (HOME MED) PO SCH (13:29)
--- NOTE | 2017-11-08 14:05 | CP.PCM.DIS ---
<Hermila Riggs - Last Filed: 11/08/17 19:05> Provider - Provider Date of Admission: 11/07/17 08:44 Attending physician: Rochelle Castaneda MD Primary care physician: Kelton Haynes MD Consults: Cardio Josue York Time Spent in preparation of Discharge (in minutes): 35 Diagnosis - Discharge Diagnosis (1) Acute kidney injury Status: Acute (2) Acute exacerbation of CHF (congestive heart failure) Status: Acute Hospital Course - Lab Results Lab Results: Most Recent Lab Values WBC 8.2 10^3/ul (4.5-11.0) 11/08/17 06:30 RBC 4.59 10^6/uL (3.5-6.1) 11/08/17 06:30 Hgb 13.1 g/dL (14.0-18.0) L 11/08/17 06:30 Hct 42.0 % (42.0-52.0) 11/08/17 06:30 MCV 91.5 fl (80.0-105.0) 11/08/17 06:30 MCH 28.5 pg (25.0-35.0) 11/08/17 06:30 MCHC 31.2 g/dl (31.0-37.0) 11/08/17 06:30 RDW 16.0 % (11.5-14.5) H 11/08/17 06:30 Plt Count 178 10^3/uL (120.0-450.0) 11/08/17 06:30 MPV 9.6 fl (7.0-11.0) 11/08/17 06:30 Gran % 74.8 % (50.0-68.0) H 11/08/17 06:30 Lymph % (Auto) 13.4 % (22.0-35.0) L 11/08/17 06:30 [place] % (Auto) 10.7 % (1.0-6.0) H 11/08/17 06:30 Eos % (Auto) 1.0 % (1.5-5.0) L 11/08/17 06:30 Baso % (Auto) 0.1 % (0.0-3.0) 11/08/17 06:30 Gran # 6.14 (1.4-6.5) 11/08/17 06:30 Lymph # (Auto) 1.1 (1.2-3.4) L 11/08/17 06:30 [place] # (Auto) 0.9 (0.1-0.6) H 11/08/17 06:30 Eos # (Auto) 0.1 (0.0-0.7) 11/08/17 06:30 Baso # (Auto) 0.01 K/mm3 (0.0-2.0) 11/08/17 06:30 pO2 30 mm/Hg (30-55) 11/07/17 06:31 VBG pH 7.28 (7.32-7.43) L 11/07/17 06:31 VBG pCO2 56.0 (40-60) 11/07/17 06:31 VBG HCO3 26.3 mmol/l (21-28) 11/07/17 06:31 VBG Total CO2 28.0 mmol.L (22-28) 11/07/17 06:31 VBG O2 Sat (Calc) 63.9 % (40-65) 11/07/17 06:31 VBG Base Excess -1.4 mmol/L (0.0-2.0) L 11/07/17 06:31 VBG Potassium 4.7 mmol/L (3.6-5.2) 11/07/17 06:31 Sodium 138.0 mmol/L (132-148) 11/07/17 06:31 Chloride 104.0 mmol/L (98-107) 11/07/17 06:31 Glucose 111 mg/dl (75-110) H 11/07/17 06:31 Lactate 1.2 mmol/L (0.7-2.1) 11/07/17 06:31 FiO2 21.0 % 11/07/17 06:31 Sodium 140 mmol/L (132-148) 11/08/17 06:30 Potassium 4.3 mmol/L (3.6-5.0) 11/08/17 06:30 Chloride 104 mmol/L (98-107) 11/08/17 06:30 Carbon Dioxide 25 mmol/L (21-33) 11/08/17 06:30 Anion Gap 15 (10-20) 11/08/17 06:30 BUN 38 mg/dL (7-21) H 11/08/17 06:30 Creatinine 1.6 mg/dl (0.8-1.5) H 11/08/17 06:30 Est GFR ( Amer) 50 11/08/17 06:30 Est GFR (Non-Af Amer) 41 11/08/17 06:30 POC Glucose (mg/dL) 89 mg/dL (65-110) 11/08/17 11:27 Random Glucose 100 mg/dL (70-110) 11/08/17 06:30 Calcium 9.8 mg/dL (8.4-10.5) 11/08/17 06:30 Phosphorus 3.6 mg/dL (2.5-4.5) 11/08/17 06:30 Magnesium 2.1 mg/dL (1.7-2.2) 11/08/17 06:30 Total Bilirubin 2.4 mg/dL (0.2-1.3) H 11/08/17 06:30 AST 25 U/L (17-59) 11/08/17 06:30 ALT 25 U/L (7-56) 11/08/17 06:30 Alkaline Phosphatase 127 U/L (38-126) H 11/08/17 06:30 Lactate Dehydrogenase 479 U/L (333-699) 11/07/17 06:31 Total Creatine Kinase 57 U/L (35-230) 11/07/17 06:31 Troponin I < 0.01 ng/mL 11/07/17 06:31 NT-Pro-B Natriuret Pep 8620 pg/mL (0-450) H 11/07/17 06:31 Total Protein 6.9 g/dL (5.8-8.3) 11/08/17 06:30 Albumin 4.0 g/dL (3.0-4.8) 11/08/17 06:30 Globulin 2.9 gm/dL 11/08/17 06:30 Albumin/Globulin Ratio 1.4 (1.1-1.8) 11/08/17 06:30 25-OH Vitamin D Total 19.6 NG/ML (30.0-100.0) L 11/08/17 06:30 Venous Blood Potassium 4.7 mmol/L (3.6-5.2) 11/07/17 06:31 Urine Color Yellow (YELLOW) 11/07/17 16:43 Urine Appearance Clear (CLEAR) 11/07/17 16:43 Urine pH 5.5 (4.7-8.0) 11/07/17 16:43 Ur Specific [place] 1.015 (1.005-1.035) 11/07/17 16:43 Urine Protein Negative mg/dL (<30 mg/dL) 11/07/17 16:43 Urine Glucose (UA) Negative mg/dL (NEGATIVE) 11/07/17 16:43 Urine Ketones Negative mg/dL (NEGATIVE) 11/07/17 16:43 Urine Blood Small (NEGATIVE) H 11/07/17 16:43 Urine Nitrate Negative (NEGATIVE) 11/07/17 16:43 Urine Bilirubin Negative (NEGATIVE) 11/07/17 16:43 Urine Urobilinogen 0.2 E.U./dL (<1 E.U./dL) 11/07/17 16:43 Ur Leukocyte Esterase Negative [place]/uL (NEGATIVE) 11/07/17 16:43 Urine RBC 0 - 2 /hpf (0-2) 11/07/17 16:43 Urine WBC 1 - 3 /hpf (0-6) 11/07/17 16:43 Ur Epithelial Cells 1 - 3 /hpf (0-5) 11/07/17 16:43 Urine Bacteria Few (NEG) 11/07/17 16:43 Ur Random Creatinine 83 mg/dL 11/07/17 16:43 U Random Total Protein 16 mg/L 11/07/17 16:42 Ur Random Sodium 76 meq/L 11/07/17 16:43 Ur Random Urea Nitrogn 726 mg/dL 11/07/17 16:43 Urine Microalbumin 89.9 mg/L (0.0-16.6) H 11/07/17 16:43 Influenza Typ A,B (EIA) Negative for flu a/b (NEGATIVE) 11/07/17 06:31 - Hospital Course Hospital Course: 82 yo male with PMH of a. fib, BPH, CHF (EF 25%), defibrillator, pacemaker, CAD , basal cell carcinoma presents with increasing SOB, orthopnea. BNP found to be elevated and CXR showed vascular congestion. Pt admitted for CHF exacerbation , ALICJA. Pt received IV Lasix, which helped his breathing. His CHAPARRO-i/ARB were held to prevent further renal damage. Dr Salas was consulted and recommended to continue the current regimen. Prelim reading of echocardiogram obtained showed EF 22%. Dr York was consulted. His creatinine looks better today, and patient is to resume his home Lisinopril tomorrow. However, he will continue to hold his ARB until his follow up outpatient appointment. Discharge Exam - Head Exam Head Exam: ATRAUMATIC, NORMAL INSPECTION, NORMOCEPHALIC - Eye Exam Eye Exam: Normal appearance, PERRL. absent: Conjunctival injection, Nystagmus, Scleral icterus Pupil Exam: PERRL. absent: Fixed, Irregular, Unequal - ENT Exam ENT Exam: Mucous Membranes Moist - Respiratory Exam Respiratory Exam: Clear to PA & Lateral, NORMAL BREATHING PATTERN. absent: Accessory Muscle Use, Rhonchi, Wheezes, Stridor - Cardiovascular Exam Cardiovascular Exam: RRR, +S1, +S2. absent: Systolic Murmur - GI/Abdominal Exam GI & Abdominal Exam: Normal Bowel Sounds, Soft. absent: Distended, Mass, Rigid , Tenderness - Extremities Exam Extremities exam: normal inspection - Neurological Exam Neurological exam: Alert, Oriented x3 - Psychiatric Exam Psychiatric exam: Normal Affect, Normal Mood - Skin Skin Exam: Dry, Normal Color, Warm Discharge Plan - Follow Up Plan Condition: GOOD Disposition: HOME/ ROUTINE Instructions: Heart Failure (DC), Heart Failure (GEN), Supraventricular Tachycardia (DC), Pacemaker (DC), Pacemaker (GEN), Pulmonary Edema (DC), Pulmonary Edema (GEN), Acute Kidney Injury (DC), Syncope (DC), Ascites (DC), Ascites (GEN) Additional Instructions: - You can resume your Lisinopril tomorrow. Hold Valsartan at home until you follow up with Dr Haynes. - Follow up with Dr Salas in 1 week. - Follow up with PMD in 1 week. - Return to ER if any concerns. Referrals: Kelton Haynes MD [Primary Care Provider] - <Rochelle Castaneda - Last Filed: 11/09/17 08:03> Provider - Provider Date of Admission: 11/07/17 08:44 Attending physician: Rochelle Castaneda MD Primary care physician: Kelton Haynes MD Hospital Course - Lab Results Lab Results: Most Recent Lab Values WBC 8.2 10^3/ul (4.5-11.0) 11/08/17 06:30 RBC 4.59 10^6/uL (3.5-6.1) 11/08/17 06:30 Hgb 13.1 g/dL (14.0-18.0) L 11/08/17 06:30 Hct 42.0 % (42.0-52.0) 11/08/17 06:30 MCV 91.5 fl (80.0-105.0) 11/08/17 06:30 MCH 28.5 pg (25.0-35.0) 11/08/17 06:30 MCHC 31.2 g/dl (31.0-37.0) 11/08/17 06:30 RDW 16.0 % (11.5-14.5) H 11/08/17 06:30 Plt Count 178 10^3/uL (120.0-450.0) 11/08/17 06:30 MPV 9.6 fl (7.0-11.0) 11/08/17 06:30 Gran % 74.8 % (50.0-68.0) H 11/08/17 06:30 Lymph % (Auto) 13.4 % (22.0-35.0) L 11/08/17 06:30 [place] % (Auto) 10.7 % (1.0-6.0) H 11/08/17 06:30 Eos % (Auto) 1.0 % (1.5-5.0) L 11/08/17 06:30 Baso % (Auto) 0.1 % (0.0-3.0) 11/08/17 06:30 Gran # 6.14 (1.4-6.5) 11/08/17 06:30 Lymph # (Auto) 1.1 (1.2-3.4) L 11/08/17 06:30 [place] # (Auto) 0.9 (0.1-0.6) H 11/08/17 06:30 Eos # (Auto) 0.1 (0.0-0.7) 11/08/17 06:30 Baso # (Auto) 0.01 K/mm3 (0.0-2.0) 11/08/17 06:30 pO2 30 mm/Hg (30-55) 11/07/17 06:31 VBG pH 7.28 (7.32-7.43) L 11/07/17 06:31 VBG pCO2 56.0 (40-60) 11/07/17 06:31 VBG HCO3 26.3 mmol/l (21-28) 11/07/17 06:31 VBG Total CO2 28.0 mmol.L (22-28) 11/07/17 06:31 VBG O2 Sat (Calc) 63.9 % (40-65) 11/07/17 06:31 VBG Base Excess -1.4 mmol/L (0.0-2.0) L 11/07/17 06:31 VBG Potassium 4.7 mmol/L (3.6-5.2) 11/07/17 06:31 Sodium 138.0 mmol/L (132-148) 11/07/17 06:31 Chloride 104.0 mmol/L (98-107) 11/07/17 06:31 Glucose 111 mg/dl (75-110) H 11/07/17 06:31 Lactate 1.2 mmol/L (0.7-2.1) 11/07/17 06:31 FiO2 21.0 % 11/07/17 06:31 Sodium 140 mmol/L (132-148) 11/08/17 06:30 Potassium 4.3 mmol/L (3.6-5.0) 11/08/17 06:30 Chloride 104 mmol/L (98-107) 11/08/17 06:30 Carbon Dioxide 25 mmol/L (21-33) 11/08/17 06:30 Anion Gap 15 (10-20) 11/08/17 06:30 BUN 38 mg/dL (7-21) H 11/08/17 06:30 Creatinine 1.6 mg/dl (0.8-1.5) H 11/08/17 06:30 Est GFR ( Amer) 50 11/08/17 06:30 Est GFR (Non-Af Amer) 41 11/08/17 06:30 POC Glucose (mg/dL) 89 mg/dL (65-110) 11/08/17 11:27 Random Glucose 100 mg/dL (70-110) 11/08/17 06:30 Calcium 9.8 mg/dL (8.4-10.5) 11/08/17 06:30 Phosphorus 3.6 mg/dL (2.5-4.5) 11/08/17 06:30 Magnesium 2.1 mg/dL (1.7-2.2) 11/08/17 06:30 Total Bilirubin 2.4 mg/dL (0.2-1.3) H 11/08/17 06:30 AST 25 U/L (17-59) 11/08/17 06:30 ALT 25 U/L (7-56) 11/08/17 06:30 Alkaline Phosphatase 127 U/L (38-126) H 11/08/17 06:30 Lactate Dehydrogenase 479 U/L (333-699) 11/07/17 06:31 Total Creatine Kinase 57 U/L (35-230) 11/07/17 06:31 Troponin I < 0.01 ng/mL 11/07/17 06:31 NT-Pro-B Natriuret Pep 8620 pg/mL (0-450) H 11/07/17 06:31 Total Protein 6.9 g/dL (5.8-8.3) 11/08/17 06:30 Albumin 4.0 g/dL (3.0-4.8) 11/08/17 06:30 Globulin 2.9 gm/dL 11/08/17 06:30 Albumin/Globulin Ratio 1.4 (1.1-1.8) 11/08/17 06:30 25-OH Vitamin D Total 19.6 NG/ML (30.0-100.0) L 11/08/17 06:30 Venous Blood Potassium 4.7 mmol/L (3.6-5.2) 11/07/17 06:31 Urine Color Yellow (YELLOW) 11/07/17 16:43 Urine Appearance Clear (CLEAR) 11/07/17 16:43 Urine pH 5.5 (4.7-8.0) 11/07/17 16:43 Ur Specific [place] 1.015 (1.005-1.035) 11/07/17 16:43 Urine Protein Negative mg/dL (<30 mg/dL) 11/07/17 16:43 Urine Glucose (UA) Negative mg/dL (NEGATIVE) 11/07/17 16:43 Urine Ketones Negative mg/dL (NEGATIVE) 11/07/17 16:43 Urine Blood Small (NEGATIVE) H 11/07/17 16:43 Urine Nitrate Negative (NEGATIVE) 11/07/17 16:43 Urine Bilirubin Negative (NEGATIVE) 11/07/17 16:43 Urine Urobilinogen 0.2 E.U./dL (<1 E.U./dL) 11/07/17 16:43 Ur Leukocyte Esterase Negative [place]/uL (NEGATIVE) 11/07/17 16:43 Urine RBC 0 - 2 /hpf (0-2) 11/07/17 16:43 Urine WBC 1 - 3 /hpf (0-6) 11/07/17 16:43 Ur Epithelial Cells 1 - 3 /hpf (0-5) 11/07/17 16:43 Urine Bacteria Few (NEG) 11/07/17 16:43 Ur Random Creatinine 83 mg/dL 11/07/17 16:43 U Random Total Protein 16 mg/L 11/07/17 16:42 Ur Random Sodium 76 meq/L 11/07/17 16:43 Ur Random Urea Nitrogn 726 mg/dL 11/07/17 16:43 Urine Microalbumin 89.9 mg/L (0.0-16.6) H 11/07/17 16:43 Influenza Typ A,B (EIA) Negative for flu a/b (NEGATIVE) 11/07/17 06:31 Attending/Attestation - Attestation I have personally seen and examined this patient.: Yes I have fully participated in the care of the patient.: Yes I have reviewed all pertinent clinical information, including history, physical exam and plan: Yes Notes (Text): 11/08/17 82 year old male with past medical history of CHF s/p defibrillator/pacemaker, AFib on eliqius, BPH and CKD who presented with CHF exacerbation and acute on chronic kidney failure. He was started on iv lasix with improvement of symptoms. He was seen by cardiology. His lisinopril and valsartan were held and his kidney function improved close to baseline. Patient is discharged home to follow up with his pmd. Follow up with Dr. Salas and Dr. York. Can resume lisinopril tomorrow and continue to hold valsartan. Repeat labs next week with pmd/cardiology/nephrology. Rochelle Castaneda MD Hospitalist.
--- NOTE | 2017-11-09 09:18 | CARD ---
APPROVED REPORT EXAM: Two-dimensional and M-mode echocardiogram with Doppler and color Doppler. Other Information Quality : AverageRhythm : INDICATION Dyspnea Congestive Heart Failure 2D DIMENSIONS Left Atrium (2D)5.4 (1.6-4.0cm)IVSd1.3 (0.7-1.1cm) LVDd5.6 (3.9-5.9cm)PWd1.0 (0.7-1.1cm) LVDs5.1 (2.5-4.0cm)LVEF (%)20.0 (>50%) M-Mode DIMENSIONS Aortic Root3.10 (2.2-3.7cm)Aortic Cusp Exc.1.40 (1.5-2.0cm) Aortic Valve AoV Peak [id number]/Luz [place] Peak GR.9mmHg Mitral Valve E/A ratio0.0 TDI E/Lateral E'0.0E/Medial E'0.0 Tricuspid Valve TR Peak [id number]/sRAP [id number] Peak Gr.58mmHg [id number] LEFT VENTRICLE The left ventricle is normal size. There is normal left ventricular wall thickness. Left ventricle systolic function is severely impaired. The Ejection Fraction is - 20 % There is severe global hypokinesis. RIGHT VENTRICLE The right ventricle is moderately dilated. There is a pacemaker lead in the right ventricle. ATRIA The left atrium is moderately dilated. The right atrium is moderately dilated. A pacemaker is seen in the right atrium. AORTIC VALVE The aortic valve is moderately calcified. There is mild aortic regurgitation. MITRAL VALVE The mitral valve is normal in structure. Mitral regurgitation is moderate. TRICUSPID VALVE The tricuspid valve is normal in structure. There is moderate tricuspid regurgitation. There is severe pulmonary hypertension. PULMONIC VALVE The pulmonary valve is normal in structure. There is trace pulmonic valvular regurgitation. GREAT VESSELS The aortic root is normal in size. PERICARDIAL EFFUSION There is no pericardial effusion. <Conclusion> The left ventricle is normal size. There is normal left ventricular wall thickness. Left ventricle systolic function is severely impaired. The Ejection Fraction is - 20 % The aortic valve is moderately calcified. Aortic sclerosis vs. mild . There is mild aortic regurgitation. Mitral regurgitation is moderate. There is moderate tricuspid regurgitation. There is severe pulmonary hypertension.
--- NOTE | 2017-11-09 09:38 | CP.PCM.PN ---
Subjective - Date & Time of Evaluation Date of Evaluation: 11/08/17 Time of Evaluation: 11:00 - Subjective Subjective: Patient reports breathing well; Objective - Vital Signs/Intake and Output Vital Signs (last 24 hours): Temp Pulse Resp BP Pulse Ox 97.2 F L 69 17 108/66 98 11/08/17 12:00 11/08/17 12:00 11/08/17 12:00 11/08/17 13:28 11/08/17 12:00 - Labs Labs: 11/08/17 06:30 11/08/17 06:30 - Constitutional Appears: Non-toxic, No Acute Distress - Eye Exam Eye Exam: Normal appearance. absent: Scleral icterus - ENT Exam ENT Exam: Mucous Membranes Moist - Respiratory Exam Respiratory Exam: Clear to Ausculation Bilateral. absent: Respiratory Distress - Cardiovascular Exam Cardiovascular Exam: RRR, +S1, +S2 - GI/Abdominal Exam GI & Abdominal Exam: Soft. absent: Distended, Tenderness - Neurological Exam Neurological Exam: Alert, Awake - Psychiatric Exam Psychiatric exam: Normal Mood. absent: Agitated - Skin Skin Exam: Warm. absent: Cyanosis Assessment and Plan (1) Acute exacerbation of CHF (congestive heart failure) Assessment & Plan: Relatively mild exacerbation of systolic CHF; improved on small dose of IV lasix 20 mg q12h; suspect his improvement in renal function contributing to his overall CHF symptoms; counseled on need to be on CHAPARRO inhibitor OR ARB, not both as he was doing at home (concomitant use may have resulted in worsened renal function); counseled on need to f/u with PMD as well (not seen since 04/2017 despite going to ED with CHF symptoms in 08/2017); counseled on need for daily weights and need to increase lasix dose as needed; Status: Acute (2) Acute kidney injury Assessment & Plan: Improved, serum creat back to baseline, see above; needs close outpatient f/u; Status: Acute - Assessment and Plan (Free Text) Assessment: Case discussed with primary attending before d/c today;
== END 2017-11-08 16:32 | disposition home or self-care (01) | DRG 291 ==
LOC: ED 06:03 → ERH 08:44 → 3RSO 11:24
PROVIDERS: ADMIT Internal Medicine; ATTEND Internal Medicine
DX: I13.0 Hypertensive heart and chronic kidney disease with heart failure and stage 1 through stage 4 chronic kidney disease, or unspecified chronic kidney disease (principal); I50.23 Acute on chronic systolic (congestive) heart failure; N17.9 Acute kidney failure, unspecified; E87.2 Acidosis; I47.1 Supraventricular tachycardia; N18.9 Chronic kidney disease, unspecified; I48.0 Paroxysmal atrial fibrillation; I25.10 Atherosclerotic heart disease of native coronary artery without angina pectoris; I25.2 Old myocardial infarction; N40.0 Benign prostatic hyperplasia without lower urinary tract symptoms; E03.9 Hypothyroidism, unspecified; E78.5 Hyperlipidemia, unspecified; Z85.828 Personal history of other malignant neoplasm of skin; Z87.891 Personal history of nicotine dependence; Z95.0 Presence of cardiac pacemaker; Z95.5 Presence of coronary angioplasty implant and graft; Z95.810 Presence of automatic (implantable) cardiac defibrillator; Z79.899 Other long term (current) drug therapy; Z88.8 Allergy status to other drugs, medicaments and biological substances; Z87.892 Personal history of anaphylaxis; R40.2412 Glasgow coma scale score 13-15, at arrival to emergency department